=== PATIENT | male | born 1960 | race Caucasian/White ===

== ENCOUNTER 2022-03-31 09:51 | Day surgery (SDC) | payer OTHER ==
[2022-03-31] MEDS ORDERED: Depo-Medrol 40 MG/ML IM ONE (09:52)
[2022-03-31] MEDS ORDERED: Sodium Chloride 0.9(Preservative Free) 10 ML IJ ONE (09:52)
[2022-03-31] MEDS ORDERED: DUONEB 0.5-3 MG/3 ml Neb IH ONE (10:52)
[2022-03-31 11:05] VITALS: PULSE 58; O2SAT 95
[2022-03-31] MEDS ORDERED: DIPRIVAN 200 MG/20 ML IV ONE (12:26)
[2022-03-31] MEDS ORDERED: Lactated Ringers 1,000 ML IV ONE (13:08)
--- NOTE | 2022-03-31 14:13 | XRAY ---
Indication: Left L4-S1 transforaminal SAVANNA. Intraoperative fluoroscopy provided for 53 seconds. 6 digital spot image submitted for interpretation demonstrates posterior needle tips projecting over the expected left L4 and L5 nerve roots. Small amount of contrast injected for needle tip placement. Correlate with intraoperative findings/report.
--- NOTE | 2022-03-31 14:19 | XRAY ---
53 seconds of fluoroscopy was used in surgery for a left L4-S1 transforaminal SAVANNA.
== END 2022-03-31 12:58 | disposition home or self-care (01) ==
LOC: SDC-PAIN 09:51
PROVIDERS: ATTEND Psychiatry & Neurology Pain Medicine
DX: M54.16 Radiculopathy, lumbar region (principal); E11.9 Type 2 diabetes mellitus without complications; Z79.899 Other long term (current) drug therapy
CPT/HCPCS: 64483; 64484; 72100; 77003; 82947; 94640; J1030; J2704; Q9966; A9270-GY

== ENCOUNTER 2022-06-16 07:15 | Day surgery (SDC) | payer OTHER ==
[2022-06-16] MEDS ORDERED: Depo-Medrol 40 MG/ML IM ONE (07:16)
[2022-06-16] MEDS ORDERED: Sodium Chloride 0.9(Preservative Free) 10 ML IJ ONE (07:16)
[2022-06-16] MEDS ORDERED: Lactated Ringers 1,000 ML IV ONE (08:31)
[2022-06-16] MEDS ORDERED: DIPRIVAN 200 MG/20 ML IV ONE (09:03)
[2022-06-16] MEDS ORDERED: Ketamine HCl 50 MG/ML ONE (09:04)
--- NOTE | 2022-06-16 10:16 | XRAY ---
Indication: Left L4-S1 transforaminal SAVANNA. Intraoperative fluoroscopy provided for 45 seconds. 5 digital spot image submitted for interpretation demonstrates posterior needle tips projecting over the expected left L4 and L5 nerve roots. Small amount of contrast injected for needle tip placement. Correlate with intraoperative findings/report.
--- NOTE | 2022-06-16 10:24 | XRAY ---
45 seconds fluoroscopy time in surgery for left L4-S1 transforaminal SAVANNA.
== END 2022-06-16 09:40 | disposition home or self-care (01) ==
LOC: SDC-PAIN 07:15
PROVIDERS: ATTEND Psychiatry & Neurology Pain Medicine
DX: M54.16 Radiculopathy, lumbar region (principal); E11.9 Type 2 diabetes mellitus without complications; Z79.899 Other long term (current) drug therapy
CPT/HCPCS: 64483; 64484; 72100; 77003; 82947; J1030; J2704

== ENCOUNTER 2023-01-26 06:16 | Day surgery (SDC) | payer OTHER ==
[2023-01-26] MEDS ORDERED: Depo-Medrol 40 MG/ML IM ONE (06:17)
[2023-01-26] MEDS ORDERED: Sodium Chloride 0.9(Preservative Free) 10 ML IJ ONE (06:17)
[2023-01-26] MEDS ORDERED: DIPRIVAN 200 MG/20 ML IV ONE (08:38)
[2023-01-26] MEDS ORDERED: Lactated Ringers 1,000 ML IV ONE (09:45)
--- NOTE | 2023-01-26 10:29 | XRAY ---
Indication: Left L4-S1 transforaminal SAVANNA. Intraoperative fluoroscopy provided for 27 seconds. 3 digital spot images submitted for interpretation demonstrate posterior needle tip projecting over the expected left L4 and L5 nerve roots. Small amount of contrast injected for needle tip placement. Correlate with intraoperative findings/report.
--- NOTE | 2023-01-26 11:53 | XRAY ---
27 seconds of fluoroscopy was used in surgery for a left L4-S1 transforaminal SAVANNA.
== END 2023-01-26 09:05 | disposition home or self-care (01) ==
LOC: SDC-PAIN 06:16
PROVIDERS: ATTEND Psychiatry & Neurology Pain Medicine
DX: M54.16 Radiculopathy, lumbar region (principal); E11.9 Type 2 diabetes mellitus without complications; Z79.899 Other long term (current) drug therapy
CPT/HCPCS: 64483; 64484; 72100; 77003; 82947; J1030; J2704; Q9966

== ENCOUNTER 2023-05-11 15:00 | Day surgery (SDC) | payer OTHER ==
[2023-05-11] MEDS ORDERED: BUPIVACAINE 0.5% VIAL IJ ONE (15:01)
[2023-05-11] MEDS ORDERED: XYLOCAINE-MPF 1% 5ML SDV IJ ONE (15:01)
[2023-05-11] MEDS ORDERED: Depo-Medrol 40 MG/ML IM ONE (15:01)
--- NOTE | 2023-05-11 18:44 | XRAY ---
Indication: Bilateral SI joint injection. Intraoperative fluoroscopy provided for 18 seconds. 5 digital spot image submitted for interpretation demonstrates posterior needle tip projecting over the left and right SI joint. Correlate with intraoperative findings/report.
--- NOTE | 2023-05-11 18:51 | XRAY ---
18 seconds of fluoroscopy was used in surgery for a bilateral sacroiliac joint injection.
== END 2023-05-11 18:00 | disposition home or self-care (01) ==
LOC: SDC-PAIN 15:00
PROVIDERS: ATTEND Psychiatry & Neurology Pain Medicine
DX: M46.1 Sacroiliitis, not elsewhere classified (principal); E11.9 Type 2 diabetes mellitus without complications
CPT/HCPCS: 27096; 72202; 77002; 82947; J1030; G0260

== ENCOUNTER 2023-12-07 13:32 | Day surgery (SDC) | payer BC, OTHER ==
[2023-12-07] MEDS ORDERED: Decadron 4 MG INJ IV ONE (13:33)
[2023-12-07] MEDS ORDERED: LIDOCAINE HCL 1% 50 MG/5 ML VL PF IJ ONE (13:33)
--- NOTE | 2023-12-07 16:54 | XRAY ---
Indication: Left piriformis injection. Intraoperative fluoroscopy provided for 13 seconds. Single digital spot image submitted for interpretation demonstrates posterior needle tip projecting over the left piriformis. Small amount of contrast injected for needle tip placement. Correlate with intraoperative findings/report.
--- NOTE | 2023-12-07 17:03 | XRAY ---
13 seconds of fluoroscopy was used in surgery for a left piriformis injection.
== END 2023-12-07 16:06 | disposition home or self-care (01) ==
LOC: SDC-PAIN 13:32
PROVIDERS: ATTEND Psychiatry & Neurology Pain Medicine
DX: M79.18 Myalgia, other site (principal); E11.9 Type 2 diabetes mellitus without complications
CPT/HCPCS: 20552; 72170; 77002; 82947; J1100; J2001; Q9966

== ENCOUNTER 2025-02-27 06:52 | Day surgery (SDC) | payer MEDICARE, OTHER ==
[2025-02-27] MEDS ORDERED: methylPREDNISolone acetate IM ONE (06:53)
[2025-02-27] MEDS ORDERED: BUPIVACAINE 0.5% VIAL IJ ONE (06:53)
[2025-02-27] MEDS ORDERED: propofoL IV ONE (09:00)
[2025-02-27] MEDS ORDERED: Lactated Ringers 1,000 ML IV ONE (10:34)
--- NOTE | 2025-02-27 11:57 | XRAY ---
Indication: Right SI joint injection. Intraoperative fluoroscopy provided for 17 seconds. Single digital spot image submitted for interpretation demonstrates posterior needle tip projecting over right SI joint. Small amount of contrast injected for needle tip placement. Correlate with intraoperative findings/report.
--- NOTE | 2025-02-27 12:55 | XRAY ---
17 seconds of fluoroscopy was used in surgery for a right sacroiliac joint injection.
== END 2025-02-27 09:27 | disposition home or self-care (01) ==
LOC: SDC-PAIN 06:52
PROVIDERS: ATTEND Psychiatry & Neurology Pain Medicine
DX: M46.1 Sacroiliitis, not elsewhere classified (principal); E11.9 Type 2 diabetes mellitus without complications